=== PATIENT | male | born 1960 | race Caucasian/White ===

== ENCOUNTER 2017-03-29 16:19 | Emergency (ER) | payer OTHER ==
[~2017-03-29] VITALS: Ht 182.9 cm; Wt 97.7 kg
[2017-03-29 16:20] VITALS: BP 150/103
[2017-03-29] MEDS ORDERED: COLCHICINE 0.6 MG TABLET PO ONE (17:30)
== END 2017-03-29 18:02 | disposition home or self-care (01) ==
LOC: ED 17:56
DX: M10.9 Gout, unspecified (principal); M13.872 Other specified arthritis, left ankle and foot
CPT/HCPCS: 99282

== ENCOUNTER 2017-06-15 09:38 | Emergency (ER) | payer SELFPAY ==
[~2017-06-15] VITALS: Ht 182.9 cm; Wt 93.0 kg
[2017-06-15 09:41] VITALS: BP 125/89
== END 2017-06-15 10:54 | disposition home or self-care (01) ==
LOC: ED 10:45
DX: S93.401A Sprain of unspecified ligament of right ankle, initial encounter (principal); X58.XXXA Exposure to other specified factors, initial encounter; Y93.89 Activity, other specified; Y92.89 Other specified places as the place of occurrence of the external cause; Y99.8 Other external cause status
CPT/HCPCS: 99284

== ENCOUNTER 2018-08-27 07:22 | Inpatient (IN) | payer SELFPAY ==
[~2018-08-27] VITALS: Ht 180.3 cm; Wt 96.1 kg
--- NOTE | 2018-08-27 07:35 | NUR ---
PATIENT ARRIVES TO THE ER WITH SHORTNESS OF BREATH AND CHEST PRESSURE THAT BEGAN TWO DAYS AGO. HE IS 95% ON ROOM AIR AND NO VISIBLE DISTRESS, BUT REPORTS FEELING TIGHT CHESTED AND DIFFICULTY TAKING A DEEP BREATH. PATIENT IN GOWN, RAILS UP, ON MONITOR. VSS. STACH 95.
--- NOTE | 2018-08-27 07:42 | NUR ---
patient left for xray.
[2018-08-27] MEDS ORDERED: KETOROLAC 30 MG/1 ML ONE ×2 (08:08→14:21)
[2018-08-27 08:13] LABS: BASOPHILS # (AUTO) 0.08 x10^3/uL (0-0.1); BASOPHILS % (AUTO) 1 % (0-1); EOSINOPHILS # (AUTO) 0.17 x10^3/uL (0-0.4); EOSINOPHILS % (AUTO) 2 % (1-7); LYMPHOCYTES # (AUTO) 1.62 x10^3/uL (1-3.4); LYMPHOCYTES % (AUTO) 15 % (22-44); MD NO; MEAN CORPUSCULAR HEMOGLOBIN 34.8 pg (27.5-34.5); MEAN CORPUSCULAR HGB CONC 33.7 g/dL (33.2-36.2); MEAN CORPUSCULAR VOLUME 103.2 fL (81-97); MEAN PLATELET VOLUME 7.5 fL (7.4-10.4); MONOCYTES # (AUTO) 0.63 x10^3/uL (0.2-0.8); MONOCYTES % (AUTO) 6 % (2-9); NEUTROPHILS # (AUTO) 8.61 x10^3/uL (1.8-6.8); NEUTROPHILS % (AUTO) 77 % (42-75); PLATELET COUNT 200 x10^3/uL (130-400); RED BLOOD COUNT 4.38 x10^6/uL (4.38-5.82); RED CELL DISTRIBUTION WIDTH 13.1 % (9.4-14.8)
[2018-08-27 08:24] LABS: ALANINE AMINOTRANSFERASE 115 U/L (12-78); ALBUMIN 3.3 g/dL (3.4-5.0); ANION GAP 7 mmol/L (5-15); CALCIUM 8.7 mg/dL (8.5-10.1); CHLORIDE 108 mmol/L (98-107); CREATININE 1.24 mg/dL (0.7-1.3)
[2018-08-27 08:29] LABS: ALKALINE PHOSPHATASE 81 U/L (45-117); BILIRUBIN,TOTAL 0.5 mg/dL (0.2-1.0); TOTAL PROTEIN 8.5 g/dL (6.4-8.2); TROPONIN I < 0.015 ng/mL (0.000-0.045)
[2018-08-27] MEDS ORDERED: KETOROLAC 30 MG/1 ML IM ONE (08:30)
--- NOTE | 2018-08-27 09:04 | NUR ---
placed IV for CTA contrast. Patietn awaiting ct scan
--- NOTE | 2018-08-27 09:21 | NUR ---
patient left for ct scan
[2018-08-27] MEDS ORDERED: OMNIPAQUE 350 MG/ML, 100ML BOTTLE ONE (09:37)
[2018-08-27] MEDS ORDERED: HEPARIN 25,000 UNITS/500ML PMX 500 ML ONE (09:50)
[2018-08-27] MEDS ORDERED: HEPARIN 5,000 UNITS/ML, 1ML ONE ×2 (09:58→09:59)
[2018-08-27] MEDS: HEPARIN 25,000 UNITS/500ML PMX 500 ML IV PRN ×2 (09:59→14:00)
[2018-08-27] MEDS ORDERED: HEPARIN 5,000 UNITS/ML, 1ML IV ONE (10:00)
[2018-08-27] MEDS ORDERED: HEPARIN 5,000 UNITS/ML, 1ML IV PRN (10:00)
[2018-08-27] MEDS ORDERED: ONDANSETRON 2MG/ML, 2ML IVPush PRN (12:00)
[2018-08-27] MEDS ORDERED: hydrALAzine 20 MG/ML, 1ML IVPush PRN (12:00)
[2018-08-27] MEDS ORDERED: ACETAMINOPHEN 325 MG TABLET PO PRN (12:00)
--- NOTE | 2018-08-27 12:18 | NUR ---
patient still awaiting admission bed. calm and comfortable in bed. will jason.
--- NOTE | 2018-08-27 12:51 | NUR ---
ordered bed for patient. got him up to bathroom with no problems walking to bathroom
--- NOTE | 2018-08-27 13:32 | NUR ---
patient on hospital bed. patient returned from ct scan. awaiting results.
--- NOTE | 2018-08-27 14:00 | NUR ---
PATIENT HEPARIN GTT IS NO REBOLUS AND NO CHANGE RATE REDRAW 22:00
[2018-08-27] MEDS ORDERED: ENOXAPARIN 80 MG/0.8 ML ONE (14:21)
[2018-08-27] MEDS: ENOXAPARIN 80 MG/0.8 ML SQ SCH (14:22)
[2018-08-27] MEDS: KETOROLAC 30 MG/1 ML IV SCH ×3 (14:22→23:54)
--- NOTE | 2018-08-27 16:52 | NUR ---
REPORT CALLED SBAR. LISA JAMES. PATIENT RTG.
--- NOTE | 2018-08-27 16:57 | NUR ---
CALLING LAB TO CLEAR UP TIME ON THE TIMED XA AND THEY STATED THEY MANJTI IT TOO EARLY 12:27 AND WILL DRAW HIM STAT NOW
[2018-08-27 18:24] VITALS: BP 134/91
[2018-08-27 20:24] VITALS: BP 148/90
[2018-08-28 00:51] VITALS: BP 124/71
[2018-08-28] MEDS: ENOXAPARIN 80 MG/0.8 ML SQ SCH (02:23)
[2018-08-28] MEDS: KETOROLAC 30 MG/1 ML IV SCH ×3 (05:52→18:21)
[2018-08-28 07:35] VITALS: BP 133/89
[2018-08-28 14:16] VITALS: BP 137/86
[2018-08-28] MEDS: ENOXAPARIN 100 MG/ML SQ SCH (14:19)
[2018-08-28 19:19] VITALS: BP 107/69
[2018-08-29] MEDS: ENOXAPARIN 100 MG/ML SQ SCH (01:27)
[2018-08-29] MEDS: KETOROLAC 30 MG/1 ML IV SCH ×3 (01:27→13:14)
[2018-08-29 02:00] VITALS: BP 126/75
[2018-08-29 07:51] VITALS: BP 136/80
[2018-08-29 12:03] VITALS: BP 156/87
[2018-08-29] MEDS ORDERED: APIX5TAB PO (15:14)
[2018-08-29] MEDS ORDERED: IBUP-1222 PO (15:14)
== END 2018-08-29 16:20 | disposition home or self-care (01) | DRG 176 ==
LOC: ED 07:53 → SUATTDRO 10:44 → EDIP 11:56 → 4WST 17:15 → DCLOUNGE 08-29 16:07
PROVIDERS: ADMIT Internal Medicine; ATTEND Internal Medicine
DX: I26.99 Other pulmonary embolism without acute cor pulmonale (principal); I10 Essential (primary) hypertension; R07.89 Other chest pain; Z80.8 Family history of malignant neoplasm of other organs or systems; Z79.01 Long term (current) use of anticoagulants; Z79.899 Other long term (current) drug therapy
CPT/HCPCS: 0399T; 36415; 71046; 71275; 74176; 80053; 80074; 84484; 85025; 85379; 85520; 87521; 93005; 93306; 93970; 96374; 96375; 99285; G0378; J1644; J1650; J1885; Q9967

== ENCOUNTER 2020-06-02 19:08 | Emergency (ER) | payer MEDICAID ==
[~2020-06-02] VITALS: Ht 180.3 cm; Wt 104.4 kg
[~2020-06-02 19:08] MED LIST: APIX5TAB PO; IBUP-1222 PO
--- NOTE | 2020-06-02 19:35 | NUR ---
PT HERE FOR FEVER, WEAKNESS, DECREASE APPETITE, AND SOB WITH EXERTION. DENIES CHEST PAIN AND STATES FEELING OK AT REST. PT TOOK TYLENOL AT 1500 TODAY. PT PLACED ON ALL MONITORS, CALL LIGHT WITHIN REACH, AWAITING ERP EVAL
[2020-06-02] MEDS ORDERED: SODIUM CHLORIDE 0.9% 1,000ML IVBOLUS ONE (21:00)
[2020-06-02] MEDS ORDERED: SODIUM CHLORIDE FLUSH 10ML SYR IVF ONE (21:00)
[2020-06-02] MEDS ORDERED: ACETAMINOPHEN 500 MG TABLET PO ONE (21:00)
[2020-06-02] MEDS ORDERED: ACETAMINOPHEN 500 MG TABLET ONE (21:08)
--- NOTE | 2020-06-02 21:13 | NUR ---
PIV STARTED, LABS DRAWN, MEDICATED PER EMAR, AWAITING CXR RESULTS. NO OTHER NEEDS AT THIS TIME
[2020-06-02 21:21] LABS: BASOPHILS % (AUTO) 1 % (0-1); EOSINOPHILS % (AUTO) 0 % (1-7); LYMPHOCYTES % (AUTO) 19 % (22-44); MEAN CORPUSCULAR HEMOGLOBIN 35.9 pg (27.5-34.5); MEAN CORPUSCULAR HGB CONC 35.2 g/dL (33.2-36.2); MEAN PLATELET VOLUME 7.9 fL (7.4-10.4); MONOCYTES % (AUTO) 6 % (2-9); NEUTROPHILS % (AUTO) 74 % (42-75); PLATELET COUNT 131 x10^3/uL (130-400); RED BLOOD COUNT 4.62 x10^6/uL (4.38-5.82); RED CELL DISTRIBUTION WIDTH 12.7 % (9.4-14.8)
[2020-06-02 21:30] LABS: ALANINE AMINOTRANSFERASE 61 U/L (12-78); ALBUMIN 3.4 g/dL (3.4-5.0); ANION GAP 7 mmol/L (5-15); CALCIUM 8.2 mg/dL (8.5-10.1); CHLORIDE 106 mmol/L (98-107); CREATININE 1.39 mg/dL (0.7-1.3)
[2020-06-02 21:37] LABS: ALKALINE PHOSPHATASE 63 U/L (45-117); BILIRUBIN,TOTAL 0.7 mg/dL (0.2-1.0); TOTAL PROTEIN 8.9 g/dL (6.4-8.2); TROPONIN I < 0.015 ng/mL (0.000-0.045)
[2020-06-02 21:54] LABS: MD SCAN
[2020-06-02] MEDS ORDERED: OMNIPAQUE 350 MG/ML, 100ML BOTTLE ONE (22:00)
--- NOTE | 2020-06-02 22:16 | NUR ---
PT TO CT
[2020-06-02 23:51] VITALS: BP 140/108
== END 2020-06-03 00:32 | disposition home or self-care (01) ==
LOC: ED 19:38
DX: J12.9 Viral pneumonia, unspecified (principal); Z20.822 Contact with and (suspected) exposure to COVID-19; R07.89 Other chest pain; R06.00 Dyspnea, unspecified
CPT/HCPCS: 36415; 71045; 71275; 80053; 83605; 84145; 84484; 85025; 87040; 93005; 96360; 99285; J7030; Q9967; U0003

== ENCOUNTER 2020-06-07 20:07 | Inpatient (IN) | payer MEDICAID ==
[~2020-06-07] VITALS: Ht 180.3 cm; Wt 94.9 kg
[2020-06-07] MEDS ORDERED: AZITHROMYCIN 500 MG in SODIUM CHLORIDE 0.9% 250 ML IV ONE (20:30)
[2020-06-07] MEDS ORDERED: ALBUTEROL/IPRATROPIUM 2.5MG/0.5MG, 3 ML NPPB ONE (20:30)
[2020-06-07] MEDS ORDERED: SODIUM CHLORIDE FLUSH 10ML SYR IVF ONE (20:30)
[2020-06-07] MEDS ORDERED: DEXAMETHASONE 4 MG TABLET PO ONE (20:30)
[2020-06-07] MEDS ORDERED: SODIUM CHLORIDE 0.9% 1,000ML IVBOLUS ONE (20:30)
[2020-06-07] MEDS ORDERED: DEXAMETHASONE 4 MG TABLET ONE (20:32)
[2020-06-07] MEDS ORDERED: ALBUTEROL/IPRATROPIUM 2.5MG/0.5MG, 3 ML ONE (20:33)
[2020-06-07 20:35] LABS: BASOPHILS % (AUTO) 0 % (0-1); EOSINOPHILS % (AUTO) 0 % (1-7); LYMPHOCYTES % (AUTO) 14 % (22-44); MEAN CORPUSCULAR HEMOGLOBIN 35.3 pg (27.5-34.5); MONOCYTES % (AUTO) 6 % (2-9); NEUTROPHILS % (AUTO) 79 % (42-75); PLATELET COUNT 217 x10^3/uL (130-400); RED BLOOD COUNT 4.34 x10^6/uL (4.38-5.82)
[2020-06-07 20:36] LABS: MD NO
[2020-06-07 20:45] LABS: ALANINE AMINOTRANSFERASE 43 U/L (12-78); ALBUMIN 2.6 g/dL (3.4-5.0); ANION GAP 7 mmol/L (5-15); CHLORIDE 109 mmol/L (98-107); CREATININE 1.31 mg/dL (0.7-1.3)
[2020-06-07 20:49] LABS: ALKALINE PHOSPHATASE 50 U/L (45-117); BILIRUBIN,TOTAL 0.6 mg/dL (0.2-1.0); TOTAL PROTEIN 8.1 g/dL (6.4-8.2); TROPONIN I < 0.015 ng/mL (0.000-0.045)
--- NOTE | 2020-06-07 21:01 | NUR ---
Pt BIBA with c/o SOB, cough, fever x 10 days. Pt was seen on friday and tested + for covid. Pt was sent home and has since felt worse. Pt with RA sats of 80%, 90-92% on 2L NC. Pt medicated per order, on monitor. Continues to be low 90 after duoneb. RT called for Highflow set up. Will monitor.
[2020-06-07] MEDS ORDERED: CEFTRIAXONE PMX 1GM/50ML 50 ML IV ONE (21:30)
[2020-06-07] MEDS ORDERED: CEFTRIAXONE PMX 1GM/50ML 50 ML ONE (21:47)
--- NOTE | 2020-06-07 23:18 | NUR ---
Pt calm in bed. VSS, tolerating high flow NC well with improvements in SPO2 and work of breathing. Pt denies any needs at this time. Will contiunue to monitor. Call light in reach.
[2020-06-08] MEDS ORDERED: OXYcodone IR 5MG TABLET PO PRN
[2020-06-08] MEDS ORDERED: POLYETHYLENE GLYCOL 17 GM PACKET PO PRN
[2020-06-08] MEDS ORDERED: DOCUSATE 100 MG CAPSULE PO PRN
[2020-06-08] MEDS ORDERED: ONDANSETRON ODT 4 MG PO PRN
[2020-06-08] MEDS ORDERED: PROMETHAZINE 25 MG/ML, 1ML IM PRN
[2020-06-08] MEDS ORDERED: ONDANSETRON 2MG/ML, 2ML IVPush PRN
[2020-06-08] MEDS ORDERED: BISACODYL 10 MG SUPP PR PRN
[2020-06-08] MEDS ORDERED: ACETAMINOPHEN 325 MG TABLET PO PRN
[2020-06-08] MEDS ORDERED: REMDESIVIR 200 MG in SODIUM CHLORIDE 0.9% 250 ML IVPB ONE (00:30)
[2020-06-08] MEDS ORDERED: PHARMACY INSTRUCTION MC PRN (00:30)
[2020-06-08] MEDS ORDERED: ASCORBIC ACID 500 MG TABLET ONE (00:35)
[2020-06-08] MEDS ORDERED: MELATONIN 5 MG TABLET ONE (00:35)
[2020-06-08] MEDS: MELATONIN 5 MG TABLET PO SCH ×2 (00:38→20:48)
[2020-06-08] MEDS: ASCORBIC ACID 500 MG TABLET PO SCH ×3 (00:38→16:03)
[2020-06-08 03:30] VITALS: BP 129/91
[2020-06-08 06:04] LABS: BASOPHILS % (AUTO) 0 % (0-1); EOSINOPHILS % (AUTO) 0 % (1-7); LYMPHOCYTES % (AUTO) 11 % (22-44); MEAN CORPUSCULAR HEMOGLOBIN 35.3 pg (27.5-34.5); MEAN CORPUSCULAR HGB CONC 34.6 g/dL (33.2-36.2); MEAN PLATELET VOLUME 8.2 fL (7.4-10.4); MONOCYTES % (AUTO) 6 % (2-9); NEUTROPHILS % (AUTO) 82 % (42-75); PLATELET COUNT 217 x10^3/uL (130-400); RED BLOOD COUNT 3.81 x10^6/uL (4.38-5.82); RED CELL DISTRIBUTION WIDTH 12.9 % (9.4-14.8)
[2020-06-08 06:08] LABS: MD NO
[2020-06-08 06:20] LABS: ALANINE AMINOTRANSFERASE 34 U/L (12-78); ALBUMIN 2.3 g/dL (3.4-5.0); ANION GAP 7 mmol/L (5-15); CHLORIDE 111 mmol/L (98-107)
[2020-06-08 06:29] LABS: ALKALINE PHOSPHATASE 43 U/L (45-117); BILIRUBIN,TOTAL 0.5 mg/dL (0.2-1.0); CHOL/HDL RATIO 3.9; CHOLESTEROL, TOTAL 118 mg/dL (140-239); HDL CHOL % 25 % (26-37); HDL CHOLESTEROL (DIRECT) 30 mg/dL (40-60); LDL CHOLESTEROL,CALCULATED 24 mg/dL (54-169); LDL/HDL RATIO 0.8 (0.5-3.0); TOTAL PROTEIN 7.3 g/dL (6.4-8.2); TRIGLYCERIDES 320 mg/dL (50-200); VLDL CHOLESTEROL 64 mg/dL (0-25)
[2020-06-08 08:52] LABS: C-REACTIVE PROTEIN, QUANT 1.6 mg/dL (0.02-0.49)
[2020-06-08 08:56] VITALS: BP 125/85
[2020-06-08] MEDS: ZINC SULFATE 220 MG CAPSULE PO SCH (09:03)
[2020-06-08] MEDS: CHOLECALCIFEROL 1,000 UNIT TABLET PO SCH (09:03)
[2020-06-08] MEDS: APIXABAN 5 MG TABLET PO SCH ×2 (09:03→20:48)
[2020-06-08] MEDS: DEXAMETHASONE 4 MG/ML, 1ML IVPush SCH (09:05)
[2020-06-08] MEDS: SODIUM CHLORIDE 0.9% 1,000 ML IV SCH ×3 (10:00→20:48)
[2020-06-08 12:40] VITALS: BP 126/87
[2020-06-08] MEDS: ACETAMINOPHEN 325 MG TABLET PO PRN (16:07)
[2020-06-08 20:45] VITALS: BP 130/89
[2020-06-08] MEDS ORDERED: AZITHROMYCIN 500 MG in SODIUM CHLORIDE 0.9% 250 ML IV SCH (21:00)
[2020-06-08] MEDS: CEFTRIAXONE PMX 2GM/50ML 50 ML IVPB SCH (22:07)
[2020-06-09] MEDS: REMDESIVIR 100 MG in SODIUM CHLORIDE 0.9% 250 ML IVPB SCH (00:59)
[2020-06-09 01:02] VITALS: BP 132/89
[2020-06-09] MEDS: ACETAMINOPHEN 325 MG TABLET PO PRN ×2 (05:11→21:35)
[2020-06-09 06:03] LABS: BASOPHILS % (AUTO) 0 % (0-1); EOSINOPHILS % (AUTO) 0 % (1-7); LYMPHOCYTES % (AUTO) 10 % (22-44); MEAN CORPUSCULAR HEMOGLOBIN 35.5 pg (27.5-34.5); MEAN CORPUSCULAR HGB CONC 35.1 g/dL (33.2-36.2); MEAN PLATELET VOLUME 8.7 fL (7.4-10.4); MONOCYTES % (AUTO) 7 % (2-9); NEUTROPHILS % (AUTO) 83 % (42-75); PLATELET COUNT 239 x10^3/uL (130-400); RED BLOOD COUNT 3.79 x10^6/uL (4.38-5.82); RED CELL DISTRIBUTION WIDTH 12.7 % (9.4-14.8)
[2020-06-09 06:04] LABS: CHLORIDE 111 mmol/L (98-107)
[2020-06-09 06:13] LABS: ALANINE AMINOTRANSFERASE 38 U/L (12-78); ALBUMIN 2.3 g/dL (3.4-5.0); ALKALINE PHOSPHATASE 50 U/L (45-117); ANION GAP 9 mmol/L (5-15); BILIRUBIN,TOTAL 0.4 mg/dL (0.2-1.0); CALCIUM 8.4 mg/dL (8.5-10.1); CREATININE 1.03 mg/dL (0.7-1.3); TOTAL PROTEIN 7.2 g/dL (6.4-8.2)
[2020-06-09 06:17] LABS: MD NO
[2020-06-09 07:45] VITALS: BP 128/86
[2020-06-09] MEDS: DEXAMETHASONE 4 MG/ML, 1ML IVPush SCH (09:15)
[2020-06-09] MEDS: ZINC SULFATE 220 MG CAPSULE PO SCH (09:16)
[2020-06-09] MEDS: CHOLECALCIFEROL 1,000 UNIT TABLET PO SCH (09:16)
[2020-06-09] MEDS: ASCORBIC ACID 500 MG TABLET PO SCH ×2 (09:17→21:35)
[2020-06-09] MEDS: APIXABAN 5 MG TABLET PO SCH ×2 (09:17→21:27)
[2020-06-09] MEDS: SODIUM CHLORIDE 0.9% 1,000 ML IV SCH ×2 (09:24→21:27)
[2020-06-09 13:33] VITALS: BP 132/87
[2020-06-09 20:38] VITALS: BP 137/89
[2020-06-09] MEDS: ATORVASTATIN 20 MG TABLET PO SCH (21:26)
[2020-06-09] MEDS: CEFTRIAXONE PMX 2GM/50ML 50 ML IVPB SCH (21:27)
[2020-06-09] MEDS: MELATONIN 5 MG TABLET PO SCH (21:27)
[2020-06-10] MEDS: REMDESIVIR 100 MG in SODIUM CHLORIDE 0.9% 250 ML IVPB SCH (01:40)
[2020-06-10 03:08] VITALS: BP 151/94
[2020-06-10] MEDS ORDERED: PROPOFOL 10 MG/ML, 100ML IV ONE (04:38)
[2020-06-10] MEDS ORDERED: ROCURONIUM 10MG/ML,5ML ONE (04:38)
[2020-06-10] MEDS ORDERED: MIDAZOLAM 1 MG/ML, 5ML ONE (04:38)
[2020-06-10] MEDS ORDERED: PROPOFOL 10 MG/ML, 20ML ONE (04:38)
[2020-06-10 05:20] LABS: C-REACTIVE PROTEIN, QUANT 0.41 mg/dL (0.02-0.49)
[2020-06-10 07:30] VITALS: BP 150/99
[2020-06-10 08:20] LABS: BASOPHILS % (AUTO) 0 % (0-1); EOSINOPHILS % (AUTO) 0 % (1-7); LYMPHOCYTES % (AUTO) 7 % (22-44); MEAN CORPUSCULAR HEMOGLOBIN 35.6 pg (27.5-34.5); MEAN CORPUSCULAR HGB CONC 35.1 g/dL (33.2-36.2); MONOCYTES % (AUTO) 5 % (2-9); NEUTROPHILS % (AUTO) 88 % (42-75); PLATELET COUNT 178 x10^3/uL (130-400); RED BLOOD COUNT 4.26 x10^6/uL (4.38-5.82); RED CELL DISTRIBUTION WIDTH 12.7 % (9.4-14.8)
[2020-06-10 08:29] LABS: ANION GAP 8 mmol/L (5-15); CALCIUM 8.5 mg/dL (8.5-10.1)
[2020-06-10 08:33] LABS: CREATININE 0.92 mg/dL (0.7-1.3)
[2020-06-10 08:36] LABS: CHLORIDE 114 mmol/L (98-107)
[2020-06-10 08:40] LABS: MD SCAN
[2020-06-10] MEDS ORDERED: DEXAMETHASONE 1 MG TABLET PO SCH (09:00)
[2020-06-10] MEDS ORDERED: DEXAMETHASONE 4 MG/ML, 1ML IVPush SCH (09:00)
[2020-06-10] MEDS ORDERED: SODIUM BICARBONATE 1 MEQ/ML, 50ML VIAL IVPush ONE (09:00)
[2020-06-10] MEDS ORDERED: TOCILIZUMAB 800 MG in SODIUM CHLORIDE 0.9% 60 ML IV ONE (09:30)
[2020-06-10] MEDS: DEXAMETHASONE 4 MG/ML, 1ML IVPush SCH (10:15)
[2020-06-10] MEDS: CHOLECALCIFEROL 1,000 UNIT TABLET PO SCH (10:15)
[2020-06-10] MEDS: APIXABAN 5 MG TABLET PO SCH ×2 (10:15→21:10)
[2020-06-10] MEDS: ZINC SULFATE 220 MG CAPSULE PO SCH (10:15)
[2020-06-10] MEDS: ASCORBIC ACID 500 MG TABLET PO SCH ×2 (10:15→17:18)
[2020-06-10] MEDS ORDERED: FUROSEMIDE 40 MG/4 ML IV ONE (11:00)
[2020-06-10] MEDS: AZITHROMYCIN 500 MG in SODIUM CHLORIDE 0.9% 250 ML IV SCH (11:25)
[2020-06-10] MEDS ORDERED: LORazepam 2 MG/ML, 1ML IVPush PRN (11:30)
[2020-06-10] MEDS: PROPOFOL 100 ML IV PRN ×4 (12:10→23:02)
[2020-06-10] MEDS ORDERED: LACTULOSE 20 GM/30 ML UDC NG PRN (12:30)
[2020-06-10] MEDS ORDERED: PHARMACY MAY ADJ FOR RENAL FX MC SCH (12:30)
[2020-06-10] MEDS ORDERED: ONDANSETRON 2MG/ML, 2ML IV PRN (12:30)
[2020-06-10] MEDS ORDERED: SENNA/DOCUSATE TABLET NG PRN (12:30)
[2020-06-10] MEDS ORDERED: BISACODYL 10 MG SUPP PR PRN (12:30)
[2020-06-10] MEDS ORDERED: GLUCAGON 1 MG IM PRN (12:30)
[2020-06-10] MEDS ORDERED: SENNA 176 MG/5 ML ORAL SOL NG PRN (12:30)
[2020-06-10] MEDS ORDERED: LIDOCAINE-MPF 1%, 2ML ENDO PRN (12:30)
[2020-06-10] MEDS ORDERED: DEXTROSE 50%, 50ML SYRINGE IVPush PRN (12:30)
[2020-06-10] MEDS ORDERED: DEXTROSE 4 GM TAB.CHEW PO PRN (12:30)
[2020-06-10] MEDS: FENTANYL PF 100 MCG/2ML IVPush PRN ×4 (12:52→23:45)
[2020-06-10] MEDS: MIDAZOLAM HCL 50 MG in SODIUM CHLORIDE 0.9% 40 ML IV PRN ×2 (15:06→21:10)
[2020-06-10] MEDS: FUROSEMIDE 40 MG/4 ML IV SCH (17:19)
[2020-06-10] MEDS: ATORVASTATIN 20 MG TABLET PO SCH (21:10)
[2020-06-10] MEDS: SODIUM CHLORIDE FLUSH 10ML SYR IVF SCH (21:10)
[2020-06-10] MEDS: CEFTRIAXONE PMX 2GM/50ML 50 ML IVPB SCH (21:28)
[2020-06-11] MEDS: REMDESIVIR 100 MG in SODIUM CHLORIDE 0.9% 250 ML IVPB SCH (02:44)
[2020-06-11] MEDS: FENTANYL PF 100 MCG/2ML IVPush PRN ×3 (02:45→09:00)
[2020-06-11 04:50] LABS: BASOPHILS % (AUTO) 0 % (0-1); EOSINOPHILS % (AUTO) 0 % (1-7); LYMPHOCYTES % (AUTO) 8 % (22-44); MEAN CORPUSCULAR HEMOGLOBIN 35.3 pg (27.5-34.5); MEAN CORPUSCULAR HGB CONC 34.8 g/dL (33.2-36.2); MEAN PLATELET VOLUME 8.5 fL (7.4-10.4); MONOCYTES % (AUTO) 4 % (2-9); NEUTROPHILS % (AUTO) 88 % (42-75); PLATELET COUNT 153 x10^3/uL (130-400); RED BLOOD COUNT 4.01 x10^6/uL (4.38-5.82); RED CELL DISTRIBUTION WIDTH 12.8 % (9.4-14.8)
[2020-06-11 04:56] LABS: MD NO
[2020-06-11 04:58] LABS: ANION GAP 9 mmol/L (5-15); CALCIUM 7.8 mg/dL (8.5-10.1); CHLORIDE 113 mmol/L (98-107)
[2020-06-11 05:00] LABS: CREATININE 1.13 mg/dL (0.7-1.3)
[2020-06-11] MEDS: INSULIN LISPRO 100 UNITS/ML, PEN SQ-INSULIN SCH ×4 (07:00→21:18)
[2020-06-11] MEDS: FUROSEMIDE 40 MG/4 ML IV SCH ×2 (07:21→17:07)
[2020-06-11] MEDS: ASCORBIC ACID 500 MG TABLET PO SCH ×2 (08:58→17:07)
[2020-06-11] MEDS: DEXAMETHASONE 4 MG/ML, 1ML IVPush SCH (08:59)
[2020-06-11] MEDS: APIXABAN 5 MG TABLET PO SCH ×2 (08:59→21:17)
[2020-06-11] MEDS: ZINC SULFATE 220 MG CAPSULE PO SCH (08:59)
[2020-06-11] MEDS: PANTOPRAZOLE 40 MG IV IV SCH (08:59)
[2020-06-11] MEDS: CHOLECALCIFEROL 1,000 UNIT TABLET PO SCH (08:59)
[2020-06-11] MEDS: SODIUM CHLORIDE FLUSH 10ML SYR IVF SCH ×2 (09:05→21:00)
[2020-06-11] MEDS: METHYLNALTREXONE 12 MG/0.6 ML SYR SQ SCH (09:05)
[2020-06-11] MEDS: MIDAZOLAM HCL 50 MG in SODIUM CHLORIDE 0.9% 40 ML IV PRN ×2 (09:46→22:24)
[2020-06-11] MEDS: FENTANYL PF 1,000 MCG in SODIUM CHLORIDE 0.9% 80 ML IV PRN ×2 (09:47→19:44)
[2020-06-11] MEDS: PROPOFOL 100 ML IV PRN ×4 (11:18→23:53)
[2020-06-11] MEDS: AZITHROMYCIN 500 MG in SODIUM CHLORIDE 0.9% 250 ML IV SCH (11:39)
[2020-06-11] MEDS: CEFTRIAXONE PMX 2GM/50ML 50 ML IVPB SCH (21:17)
[2020-06-11] MEDS: ATORVASTATIN 20 MG TABLET PO SCH (21:17)
[2020-06-12] MEDS: REMDESIVIR 100 MG in SODIUM CHLORIDE 0.9% 250 ML IVPB SCH (02:37)
[2020-06-12 04:33] LABS: BASOPHILS % (AUTO) 0 % (0-1); EOSINOPHILS % (AUTO) 1 % (1-7); LYMPHOCYTES % (AUTO) 9 % (22-44); MEAN CORPUSCULAR HEMOGLOBIN 35.5 pg (27.5-34.5); MEAN CORPUSCULAR HGB CONC 35.2 g/dL (33.2-36.2); MEAN PLATELET VOLUME 8.5 fL (7.4-10.4); MONOCYTES % (AUTO) 3 % (2-9); NEUTROPHILS % (AUTO) 86 % (42-75); PLATELET COUNT 170 x10^3/uL (130-400); RED BLOOD COUNT 3.86 x10^6/uL (4.38-5.82); RED CELL DISTRIBUTION WIDTH 13.2 % (9.4-14.8)
[2020-06-12 04:36] LABS: MD NO
[2020-06-12] MEDS: INSULIN LISPRO 100 UNITS/ML, PEN SQ-INSULIN SCH ×4 (05:59→20:29)
[2020-06-12] MEDS: PROPOFOL 100 ML IV PRN (07:09)
[2020-06-12 07:45] LABS: ANION GAP 9 mmol/L (5-15); CALCIUM 7.9 mg/dL (8.5-10.1); CHLORIDE 115 mmol/L (98-107); CREATININE 1.51 mg/dL (0.7-1.3)
[2020-06-12] MEDS: FUROSEMIDE 40 MG/4 ML IV SCH (07:45)
[2020-06-12] MEDS: APIXABAN 5 MG TABLET PO SCH ×2 (08:47→20:28)
[2020-06-12] MEDS: ASCORBIC ACID 500 MG TABLET PO SCH ×2 (08:47→17:18)
[2020-06-12] MEDS: CHOLECALCIFEROL 5,000u TAB PO SCH (08:48)
[2020-06-12] MEDS: SODIUM CHLORIDE FLUSH 10ML SYR IVF SCH ×2 (08:48→20:28)
[2020-06-12] MEDS: ZINC SULFATE 220 MG CAPSULE PO SCH (08:48)
[2020-06-12] MEDS: PANTOPRAZOLE 40 MG IV IV SCH (08:49)
[2020-06-12] MEDS: DEXAMETHASONE 4 MG/ML, 1ML IVPush SCH (08:49)
[2020-06-12] MEDS: MIDAZOLAM HCL 50 MG in SODIUM CHLORIDE 0.9% 40 ML IV PRN ×2 (08:55→17:17)
[2020-06-12] MEDS: AZITHROMYCIN 500 MG in SODIUM CHLORIDE 0.9% 250 ML IV SCH (10:34)
--- NOTE | 2020-06-12 11:36 | NUR ---
Tube Feeds: Promote: Goal :70 ml/hr Addendum: 06/12/20 at [address] Amended: Links added.
[2020-06-12] MEDS: FENTANYL PF 1,000 MCG in SODIUM CHLORIDE 0.9% 80 ML IV PRN ×2 (12:33→21:17)
[2020-06-12] MEDS: ATORVASTATIN 20 MG TABLET PO SCH (20:28)
[2020-06-12] MEDS: CEFTRIAXONE PMX 2GM/50ML 50 ML IVPB SCH (20:48)
[2020-06-13] MEDS: MIDAZOLAM HCL 50 MG in SODIUM CHLORIDE 0.9% 40 ML IV PRN ×4 (00:57→22:23)
[2020-06-13 04:28] LABS: BASOPHILS % (AUTO) 0 % (0-1); EOSINOPHILS % (AUTO) 2 % (1-7); LYMPHOCYTES % (AUTO) 7 % (22-44); MEAN CORPUSCULAR HGB CONC 34.7 g/dL (33.2-36.2); MEAN PLATELET VOLUME 8.2 fL (7.4-10.4); MONOCYTES % (AUTO) 3 % (2-9); NEUTROPHILS % (AUTO) 88 % (42-75); PLATELET COUNT 221 x10^3/uL (130-400); RED BLOOD COUNT 4.02 x10^6/uL (4.38-5.82); RED CELL DISTRIBUTION WIDTH 12.8 % (9.4-14.8)
[2020-06-13 05:41] LABS: MD SCAN
[2020-06-13] MEDS: FENTANYL PF 1,000 MCG in SODIUM CHLORIDE 0.9% 80 ML IV PRN ×2 (06:16→14:40)
[2020-06-13] MEDS: INSULIN LISPRO 100 UNITS/ML, PEN SQ-INSULIN SCH ×4 (06:16→20:23)
[2020-06-13 07:14] LABS: ANION GAP 7 mmol/L (5-15); CALCIUM 8.5 mg/dL (8.5-10.1); CHLORIDE 117 mmol/L (98-107); CREATININE 1.27 mg/dL (0.7-1.3)
[2020-06-13] MEDS: QUETIAPINE 25MG TABLET PO SCH ×2 (08:27→20:20)
[2020-06-13] MEDS: ZINC SULFATE 220 MG CAPSULE PO SCH (08:28)
[2020-06-13] MEDS: APIXABAN 5 MG TABLET PO SCH ×2 (08:29→20:21)
[2020-06-13] MEDS: ASCORBIC ACID 500 MG TABLET PO SCH ×2 (08:30→17:06)
[2020-06-13] MEDS: CHOLECALCIFEROL 5,000u TAB PO SCH (08:30)
[2020-06-13] MEDS: DEXAMETHASONE 4 MG/ML, 1ML IVPush SCH (08:31)
[2020-06-13] MEDS: METHYLNALTREXONE 12 MG/0.6 ML SYR SQ SCH (08:31)
[2020-06-13] MEDS: PANTOPRAZOLE 40 MG IV IV SCH (08:31)
[2020-06-13] MEDS: SODIUM CHLORIDE FLUSH 10ML SYR IVF SCH ×2 (08:31→20:20)
[2020-06-13] MEDS ORDERED: FUROSEMIDE 40 MG/4 ML IV ONE (09:30)
[2020-06-13] MEDS: AZITHROMYCIN 500 MG in SODIUM CHLORIDE 0.9% 250 ML IV SCH (11:18)
[2020-06-13] MEDS: CEFTRIAXONE PMX 2GM/50ML 50 ML IVPB SCH (20:20)
[2020-06-13] MEDS: ATORVASTATIN 20 MG TABLET PO SCH (20:21)
[2020-06-13] MEDS ORDERED: INSULIN GLARGINE 100 UNITS/ML, PEN SQ-INSULIN SCH (21:00)
[2020-06-13] MEDS: FENTANYL PF 2,500 MCG in SODIUM CHLORIDE 0.9% 200 ML IV PRN (23:15)
[2020-06-14] MEDS: INSULIN LISPRO 100 UNITS/ML, PEN SQ-INSULIN SCH ×4 (02:43→21:14)
[2020-06-14 04:30] LABS: BASOPHILS % (AUTO) 0 % (0-1); EOSINOPHILS % (AUTO) 2 % (1-7); LYMPHOCYTES % (AUTO) 8 % (22-44); MEAN CORPUSCULAR HEMOGLOBIN 35.6 pg (27.5-34.5); MEAN CORPUSCULAR HGB CONC 34.9 g/dL (33.2-36.2); MEAN PLATELET VOLUME 8.4 fL (7.4-10.4); MONOCYTES % (AUTO) 4 % (2-9); NEUTROPHILS % (AUTO) 87 % (42-75); PLATELET COUNT 219 x10^3/uL (130-400); RED BLOOD COUNT 3.93 x10^6/uL (4.38-5.82); RED CELL DISTRIBUTION WIDTH 12.7 % (9.4-14.8)
[2020-06-14 04:32] LABS: MD NO
[2020-06-14] MEDS: QUETIAPINE 25MG TABLET PO SCH ×2 (08:45→21:14)
[2020-06-14] MEDS: CHOLECALCIFEROL 5,000u TAB PO SCH (08:45)
[2020-06-14] MEDS: APIXABAN 5 MG TABLET PO SCH ×2 (08:45→21:14)
[2020-06-14] MEDS: ASCORBIC ACID 500 MG TABLET PO SCH ×2 (08:45→16:07)
[2020-06-14] MEDS: ZINC SULFATE 220 MG CAPSULE PO SCH (08:46)
[2020-06-14] MEDS: PANTOPRAZOLE 40 MG IV IV SCH (08:46)
[2020-06-14] MEDS: DEXAMETHASONE 4 MG/ML, 1ML IVPush SCH (08:47)
[2020-06-14] MEDS: SODIUM CHLORIDE FLUSH 10ML SYR IVF SCH ×2 (08:48→21:15)
[2020-06-14] MEDS: INSULIN GLARGINE 100 UNITS/ML, PEN SQ-INSULIN SCH ×2 (08:51→21:13)
[2020-06-14] MEDS: AZITHROMYCIN 500 MG in SODIUM CHLORIDE 0.9% 250 ML IV SCH (10:43)
[2020-06-14] MEDS: THIAMINE 100 MG in SODIUM CHLORIDE 0.9% 50 ML IV SCH (11:43)
[2020-06-14] MEDS: MIDAZOLAM HCL 50 MG in SODIUM CHLORIDE 0.9% 40 ML IV PRN (16:06)
[2020-06-14] MEDS: ATORVASTATIN 20 MG TABLET PO SCH (21:14)
[2020-06-14] MEDS: CEFTRIAXONE PMX 2GM/50ML 50 ML IVPB SCH (21:15)
[2020-06-15] MEDS: MIDAZOLAM HCL 50 MG in SODIUM CHLORIDE 0.9% 40 ML IV PRN ×2 (02:04→16:43)
[2020-06-15] MEDS: INSULIN LISPRO 100 UNITS/ML, PEN SQ-INSULIN SCH ×4 (03:25→21:37)
[2020-06-15 04:36] LABS: BASOPHILS % (AUTO) 0 % (0-1); EOSINOPHILS % (AUTO) 2 % (1-7); LYMPHOCYTES % (AUTO) 7 % (22-44); MEAN CORPUSCULAR HEMOGLOBIN 34.9 pg (27.5-34.5); MEAN CORPUSCULAR HGB CONC 33.9 g/dL (33.2-36.2); MEAN PLATELET VOLUME 7.9 fL (7.4-10.4); MONOCYTES % (AUTO) 5 % (2-9); NEUTROPHILS % (AUTO) 86 % (42-75); PLATELET COUNT 221 x10^3/uL (130-400); RED CELL DISTRIBUTION WIDTH 12.8 % (9.4-14.8)
[2020-06-15 04:37] LABS: MD NO
[2020-06-15 04:48] LABS: ALBUMIN 2.6 g/dL (3.4-5.0); ANION GAP 4 mmol/L (5-15); CALCIUM 8.3 mg/dL (8.5-10.1); CHLORIDE 112 mmol/L (98-107)
[2020-06-15 04:52] LABS: ALANINE AMINOTRANSFERASE 38 U/L (12-78); ALKALINE PHOSPHATASE 63 U/L (45-117); BILIRUBIN,TOTAL 0.3 mg/dL (0.2-1.0); CREATININE 1.09 mg/dL (0.7-1.3); TOTAL PROTEIN 6.8 g/dL (6.4-8.2)
[2020-06-15] MEDS: DEXMEDETOMIDINE 200 MCG in SODIUM CHLORIDE 0.9% 48 ML IV PRN ×3 (08:53→15:27)
[2020-06-15] MEDS: LACTULOSE 20 GM/30 ML UDC NG SCH ×3 (08:58→21:12)
[2020-06-15] MEDS: APIXABAN 5 MG TABLET PO SCH ×2 (08:58→21:12)
[2020-06-15] MEDS: CHOLECALCIFEROL 5,000u TAB PO SCH (08:59)
[2020-06-15] MEDS: PANTOPRAZOLE 40 MG IV IV SCH (08:59)
[2020-06-15] MEDS: ZINC SULFATE 220 MG CAPSULE PO SCH (08:59)
[2020-06-15] MEDS: DEXAMETHASONE 4 MG/ML, 1ML IVPush SCH (08:59)
[2020-06-15] MEDS: QUETIAPINE 25MG TABLET PO SCH ×2 (08:59→21:12)
[2020-06-15] MEDS: ASCORBIC ACID 500 MG TABLET PO SCH ×2 (08:59→17:50)
[2020-06-15] MEDS: SODIUM CHLORIDE FLUSH 10ML SYR IVF SCH ×2 (09:00→21:13)
[2020-06-15] MEDS: INSULIN GLARGINE 100 UNITS/ML, PEN SQ-INSULIN SCH ×2 (09:04→21:37)
[2020-06-15] MEDS: METHYLNALTREXONE 12 MG/0.6 ML SYR SQ SCH (09:04)
[2020-06-15] MEDS: THIAMINE 100 MG in SODIUM CHLORIDE 0.9% 50 ML IV SCH (11:09)
[2020-06-15] MEDS: hydrALAzine 20 MG/ML, 1ML IVPush PRN ×2 (14:09→21:28)
[2020-06-15] MEDS ORDERED: DEXMEDETOMIDINE 400 MCG in SODIUM CHLORIDE 0.9% 96 ML IV PRN ×2 (17:30→18:00)
[2020-06-15] MEDS: FENTANYL PF 2,500 MCG in SODIUM CHLORIDE 0.9% 200 ML IV PRN (18:01)
[2020-06-15] MEDS: DEXMEDETOMIDINE 1,000 MCG in SODIUM CHLORIDE 0.9% 240 ML IV PRN (21:11)
[2020-06-15] MEDS: ATORVASTATIN 20 MG TABLET PO SCH (21:12)
[2020-06-16] MEDS: INSULIN LISPRO 100 UNITS/ML, PEN SQ-INSULIN SCH ×4 (04:01→21:15)
[2020-06-16] MEDS: LACTULOSE 20 GM/30 ML UDC NG SCH ×4 (04:01→20:30)
[2020-06-16] MEDS: MIDAZOLAM HCL 50 MG in SODIUM CHLORIDE 0.9% 40 ML IV PRN (04:32)
[2020-06-16 04:34] LABS: ANION GAP 6 mmol/L (5-15); BASOPHILS % (AUTO) 0 % (0-1); CALCIUM 8.4 mg/dL (8.5-10.1); CHLORIDE 108 mmol/L (98-107); EOSINOPHILS % (AUTO) 1 % (1-7); LYMPHOCYTES % (AUTO) 6 % (22-44); MEAN CORPUSCULAR HEMOGLOBIN 35.8 pg (27.5-34.5); MEAN CORPUSCULAR HGB CONC 34.9 g/dL (33.2-36.2); MONOCYTES % (AUTO) 5 % (2-9); NEUTROPHILS % (AUTO) 88 % (42-75); PLATELET COUNT 198 x10^3/uL (130-400); RED BLOOD COUNT 4.17 x10^6/uL (4.38-5.82); RED CELL DISTRIBUTION WIDTH 12.9 % (9.4-14.8)
[2020-06-16 04:36] LABS: CREATININE 1.11 mg/dL (0.7-1.3)
[2020-06-16 05:43] LABS: MD SCAN
[2020-06-16] MEDS: DEXMEDETOMIDINE 1,000 MCG in SODIUM CHLORIDE 0.9% 240 ML IV PRN ×3 (06:49→23:14)
[2020-06-16] MEDS: PROPOFOL 100 ML IV PRN ×3 (09:08→23:14)
[2020-06-16] MEDS: APIXABAN 5 MG TABLET PO SCH ×2 (09:18→21:12)
[2020-06-16] MEDS: QUETIAPINE 25MG TABLET PO SCH ×2 (09:18→21:12)
[2020-06-16] MEDS: ASCORBIC ACID 500 MG TABLET PO SCH ×2 (09:18→17:00)
[2020-06-16] MEDS: PANTOPRAZOLE 40 MG IV IV SCH (09:18)
[2020-06-16] MEDS: ZINC SULFATE 220 MG CAPSULE PO SCH (09:18)
[2020-06-16] MEDS: CHOLECALCIFEROL 5,000u TAB PO SCH (09:18)
[2020-06-16] MEDS: DEXAMETHASONE 4 MG/ML, 1ML IVPush SCH (09:18)
[2020-06-16] MEDS: SODIUM CHLORIDE FLUSH 10ML SYR IVF SCH ×2 (09:19→21:12)
[2020-06-16] MEDS: INSULIN GLARGINE 100 UNITS/ML, PEN SQ-INSULIN SCH ×2 (09:27→21:15)
[2020-06-16] MEDS: CEFTRIAXONE PMX 2GM/50ML 50 ML IVPB SCH (11:37)
--- NOTE | 2020-06-16 11:43 | NUR ---
TF per RD recs (06/16): Vital HP w/ goal rate @75mL/hr (w/ propofol); @85mL/hr (OFF propofol) Addendum: 06/16/20 at [address] Amended: Links added.
[2020-06-16] MEDS: METRONIDAZOLE PMX 500MG/100ML 100 ML IV SCH ×2 (12:25→21:12)
[2020-06-16] MEDS: THIAMINE 100 MG in SODIUM CHLORIDE 0.9% 50 ML IV SCH (13:32)
[2020-06-16 13:47] LABS: CLOSTRIDIUM DIFFICILE ANTIGEN NEGATIVE; CLOSTRIDIUM DIFFICILE TOXIN NEGATIVE (Negative)
[2020-06-16] MEDS: FENTANYL PF 2,500 MCG in SODIUM CHLORIDE 0.9% 200 ML IV PRN (14:38)
[2020-06-16] MEDS: ATORVASTATIN 20 MG TABLET PO SCH (21:12)
[2020-06-16] MEDS: ACETAMINOPHEN 325 MG TABLET PO PRN (21:35)
[2020-06-17] MEDS: INSULIN LISPRO 100 UNITS/ML, PEN SQ-INSULIN SCH ×4 (02:54→20:05)
[2020-06-17] MEDS: METRONIDAZOLE PMX 500MG/100ML 100 ML IV SCH ×3 (04:56→20:04)
[2020-06-17 04:57] LABS: BASOPHILS % (AUTO) 1 % (0-1); EOSINOPHILS % (AUTO) 1 % (1-7); LYMPHOCYTES % (AUTO) 9 % (22-44); MEAN CORPUSCULAR HEMOGLOBIN 35.8 pg (27.5-34.5); MEAN CORPUSCULAR HGB CONC 34.6 g/dL (33.2-36.2); MEAN PLATELET VOLUME 7.9 fL (7.4-10.4); MONOCYTES % (AUTO) 7 % (2-9); NEUTROPHILS % (AUTO) 82 % (42-75); PLATELET COUNT 186 x10^3/uL (130-400); RED BLOOD COUNT 4.44 x10^6/uL (4.38-5.82); RED CELL DISTRIBUTION WIDTH 12.9 % (9.4-14.8)
[2020-06-17] MEDS: PROPOFOL 100 ML IV PRN ×3 (04:59→20:07)
[2020-06-17 05:01] LABS: ANION GAP 7 mmol/L (5-15); CALCIUM 8.4 mg/dL (8.5-10.1); CHLORIDE 109 mmol/L (98-107); CREATININE 1.09 mg/dL (0.7-1.3)
[2020-06-17 05:05] LABS: MD NO
[2020-06-17] MEDS: DEXMEDETOMIDINE 1,000 MCG in SODIUM CHLORIDE 0.9% 240 ML IV PRN ×3 (06:24→23:45)
[2020-06-17] MEDS ORDERED: METHYLNALTREXONE 12 MG/0.6 ML SYR SQ PRN (08:30)
[2020-06-17] MEDS ORDERED: Enoxaparin 1 mg/kg protocol SQ SCH (09:00)
[2020-06-17] MEDS ORDERED: HEPARIN 5,000 UNITS/ML, 1ML IV PRN (09:00)
[2020-06-17] MEDS ORDERED: HEPARIN 5,000 UNITS/ML, 1ML IV ONE (09:00)
[2020-06-17] MEDS: DEXAMETHASONE 4 MG/ML, 1ML IVPush SCH (09:25)
[2020-06-17] MEDS: SODIUM CHLORIDE FLUSH 10ML SYR IVF SCH ×2 (09:25→20:04)
[2020-06-17] MEDS: PANTOPRAZOLE 40 MG IV IV SCH (09:25)
[2020-06-17] MEDS: HEPARIN 25,000 UNITS/250ML PMX 250 ML IV PRN (10:04)
[2020-06-17] MEDS: CEFTRIAXONE PMX 2GM/50ML 50 ML IVPB SCH (11:15)
[2020-06-17] MEDS: INSULIN GLARGINE 100 UNITS/ML, PEN SQ-INSULIN SCH ×2 (11:23→20:05)
[2020-06-17 11:57] LABS: MICROSCOPIC INDICATED
[2020-06-17] MEDS ORDERED: OMNIPAQUE 350 MG/ML, 100ML BOTTLE ONE (12:30)
[2020-06-17] MEDS: THIAMINE 100 MG in SODIUM CHLORIDE 0.9% 50 ML IV SCH (13:40)
[2020-06-17] MEDS: MIDAZOLAM HCL 50 MG in SODIUM CHLORIDE 0.9% 40 ML IV PRN (20:10)
[2020-06-18] MEDS: INSULIN LISPRO 100 UNITS/ML, PEN SQ-INSULIN SCH ×4 (03:00→20:56)
[2020-06-18 04:11] LABS: BASOPHILS % (AUTO) 1 % (0-1); EOSINOPHILS % (AUTO) 2 % (1-7); LYMPHOCYTES % (AUTO) 11 % (22-44); MD NO; MEAN CORPUSCULAR HEMOGLOBIN 35.6 pg (27.5-34.5); MEAN CORPUSCULAR HGB CONC 35.4 g/dL (33.2-36.2); MEAN PLATELET VOLUME 7.5 fL (7.4-10.4); MONOCYTES % (AUTO) 7 % (2-9); NEUTROPHILS % (AUTO) 80 % (42-75); PLATELET COUNT 152 x10^3/uL (130-400); RED BLOOD COUNT 4.26 x10^6/uL (4.38-5.82); RED CELL DISTRIBUTION WIDTH 12.9 % (9.4-14.8)
[2020-06-18 04:22] LABS: ANION GAP 6 mmol/L (5-15); CALCIUM 7.9 mg/dL (8.5-10.1); CHLORIDE 109 mmol/L (98-107)
[2020-06-18 04:29] LABS: CREATININE 1.02 mg/dL (0.7-1.3)
[2020-06-18] MEDS: METRONIDAZOLE PMX 500MG/100ML 100 ML IV SCH ×3 (04:36→20:55)
[2020-06-18] MEDS: DEXMEDETOMIDINE 1,000 MCG in SODIUM CHLORIDE 0.9% 240 ML IV PRN ×2 (05:57→14:42)
[2020-06-18] MEDS ORDERED: FUROSEMIDE 40 MG/4 ML IV ONE (09:00)
[2020-06-18] MEDS: PANTOPRAZOLE 40 MG IV IV SCH (09:12)
[2020-06-18] MEDS: SENNA/DOCUSATE TABLET NG SCH (09:12)
[2020-06-18] MEDS: DEXAMETHASONE 4 MG/ML, 1ML IVPush SCH (09:12)
[2020-06-18] MEDS: SODIUM CHLORIDE FLUSH 10ML SYR IVF SCH ×2 (09:13→20:55)
[2020-06-18] MEDS: MIDAZOLAM HCL 50 MG in SODIUM CHLORIDE 0.9% 40 ML IV PRN (09:13)
[2020-06-18] MEDS: INSULIN GLARGINE 100 UNITS/ML, PEN SQ-INSULIN SCH ×2 (09:25→20:57)
[2020-06-18] MEDS: CEFTRIAXONE PMX 2GM/50ML 50 ML IVPB SCH (10:13)
[2020-06-18] MEDS: THIAMINE 100 MG in SODIUM CHLORIDE 0.9% 50 ML IV SCH (11:18)
[2020-06-18] MEDS: HEPARIN 25,000 UNITS/250ML PMX 250 ML IV PRN (14:27)
[2020-06-18] MEDS: FENTANYL PF 100 MCG/2ML IVPush PRN (15:37)
[2020-06-18] MEDS: PROPOFOL 100 ML IV PRN (15:58)
[2020-06-19] MEDS: ACETAMINOPHEN 325 MG TABLET PO PRN (00:10)
[2020-06-19 04:37] LABS: BASOPHILS % (AUTO) 1 % (0-1); EOSINOPHILS % (AUTO) 1 % (1-7); LYMPHOCYTES % (AUTO) 14 % (22-44); MEAN CORPUSCULAR HEMOGLOBIN 35.6 pg (27.5-34.5); MEAN CORPUSCULAR HGB CONC 34.7 g/dL (33.2-36.2); MONOCYTES % (AUTO) 8 % (2-9); NEUTROPHILS % (AUTO) 77 % (42-75); PLATELET COUNT 145 x10^3/uL (130-400); RED BLOOD COUNT 4.36 x10^6/uL (4.38-5.82); RED CELL DISTRIBUTION WIDTH 13.5 % (9.4-14.8)
[2020-06-19 04:38] LABS: MD NO
[2020-06-19] MEDS: METRONIDAZOLE PMX 500MG/100ML 100 ML IV SCH ×3 (04:41→20:07)
[2020-06-19] MEDS: PROPOFOL 100 ML IV PRN ×2 (04:41→15:48)
[2020-06-19 04:49] LABS: ANION GAP 7 mmol/L (5-15); CALCIUM 8.4 mg/dL (8.5-10.1); CHLORIDE 109 mmol/L (98-107); CREATININE 1.02 mg/dL (0.7-1.3); TRIGLYCERIDES 168 mg/dL (50-200)
[2020-06-19] MEDS: INSULIN LISPRO 100 UNITS/ML, PEN SQ-INSULIN SCH ×4 (05:13→21:00)
[2020-06-19] MEDS ORDERED: FUROSEMIDE 40 MG/4 ML IV ONE (08:30)
[2020-06-19] MEDS: PANTOPRAZOLE 40 MG IV IV SCH (09:06)
[2020-06-19] MEDS: SODIUM CHLORIDE FLUSH 10ML SYR IVF SCH ×2 (09:07→21:34)
[2020-06-19] MEDS: SENNA/DOCUSATE TABLET NG SCH (09:07)
[2020-06-19] MEDS: DEXAMETHASONE 4 MG/ML, 1ML IVPush SCH (09:07)
[2020-06-19] MEDS: INSULIN GLARGINE 100 UNITS/ML, PEN SQ-INSULIN SCH ×2 (09:08→21:37)
[2020-06-19] MEDS: DEXMEDETOMIDINE 1,000 MCG in SODIUM CHLORIDE 0.9% 240 ML IV PRN ×2 (11:08)
[2020-06-19] MEDS: CEFTRIAXONE PMX 2GM/50ML 50 ML IVPB SCH (11:08)
[2020-06-19] MEDS: RISPERIDONE 0.5 MG TABLET PO SCH ×2 (13:52→21:00)
[2020-06-19] MEDS: THIAMINE 100 MG in SODIUM CHLORIDE 0.9% 50 ML IV SCH (13:52)
[2020-06-19] MEDS: MIDAZOLAM HCL 50 MG in SODIUM CHLORIDE 0.9% 40 ML IV PRN ×3 (13:53→20:03)
[2020-06-19] MEDS: HEPARIN 25,000 UNITS/250ML PMX 250 ML IV PRN (15:37)
[2020-06-20] MEDS: DEXMEDETOMIDINE 1,000 MCG in SODIUM CHLORIDE 0.9% 240 ML IV PRN ×2 (00:02→11:17)
[2020-06-20 04:21] LABS: BASOPHILS % (AUTO) 1 % (0-1); EOSINOPHILS % (AUTO) 2 % (1-7); LYMPHOCYTES % (AUTO) 19 % (22-44); MEAN CORPUSCULAR HEMOGLOBIN 35.4 pg (27.5-34.5); MEAN CORPUSCULAR HGB CONC 34.2 g/dL (33.2-36.2); MEAN PLATELET VOLUME 8.7 fL (7.4-10.4); MONOCYTES % (AUTO) 9 % (2-9); NEUTROPHILS % (AUTO) 68 % (42-75); PLATELET COUNT 127 x10^3/uL (130-400); RED BLOOD COUNT 4.36 x10^6/uL (4.38-5.82); RED CELL DISTRIBUTION WIDTH 13.3 % (9.4-14.8)
[2020-06-20 04:29] LABS: ANION GAP 5 mmol/L (5-15); CALCIUM 8.4 mg/dL (8.5-10.1); CHLORIDE 111 mmol/L (98-107); CREATININE 1.12 mg/dL (0.7-1.3)
[2020-06-20 04:53] LABS: MD SCAN
[2020-06-20] MEDS: METRONIDAZOLE PMX 500MG/100ML 100 ML IV SCH ×3 (05:08→21:13)
[2020-06-20] MEDS: INSULIN LISPRO 100 UNITS/ML, PEN SQ-INSULIN SCH ×4 (05:08→21:00)
[2020-06-20] MEDS: SENNA/DOCUSATE TABLET NG SCH (07:58)
[2020-06-20] MEDS: PANTOPRAZOLE 40 MG IV IV SCH (07:58)
[2020-06-20] MEDS: RISPERIDONE 0.5 MG TABLET PO SCH ×2 (07:58→21:14)
[2020-06-20] MEDS: DEXAMETHASONE 4 MG/ML, 1ML IVPush SCH (07:58)
[2020-06-20] MEDS: SODIUM CHLORIDE FLUSH 10ML SYR IVF SCH ×2 (07:59→21:00)
[2020-06-20] MEDS ORDERED: FUROSEMIDE 40 MG/4 ML IV ONE (08:30)
[2020-06-20] MEDS: INSULIN GLARGINE 100 UNITS/ML, PEN SQ-INSULIN SCH ×2 (09:28→21:15)
[2020-06-20] MEDS: CEFTRIAXONE PMX 2GM/50ML 50 ML IVPB SCH (11:17)
[2020-06-20] MEDS: THIAMINE 100 MG in SODIUM CHLORIDE 0.9% 50 ML IV SCH (12:18)
[2020-06-20] MEDS: CEFTAZIDIME 2,000 MG in SODIUM CHLORIDE 0.9% 50 ML IV SCH ×2 (15:24→23:16)
[2020-06-20] MEDS: HEPARIN 25,000 UNITS/250ML PMX 250 ML IV PRN (17:58)
[2020-06-20] MEDS: PROPOFOL 100 ML IV PRN (18:48)
[2020-06-21] MEDS: DEXMEDETOMIDINE 1,000 MCG in SODIUM CHLORIDE 0.9% 240 ML IV PRN ×4 (00:26→22:15)
[2020-06-21] MEDS: INSULIN LISPRO 100 UNITS/ML, PEN SQ-INSULIN SCH ×4 (03:00→19:51)
[2020-06-21 04:34] LABS: BASOPHILS % (AUTO) 1 % (0-1); EOSINOPHILS % (AUTO) 3 % (1-7); LYMPHOCYTES % (AUTO) 15 % (22-44); MEAN CORPUSCULAR HEMOGLOBIN 35.5 pg (27.5-34.5); MEAN CORPUSCULAR HGB CONC 34.5 g/dL (33.2-36.2); MONOCYTES % (AUTO) 8 % (2-9); NEUTROPHILS % (AUTO) 73 % (42-75); PLATELET COUNT 102 x10^3/uL (130-400); RED BLOOD COUNT 4.15 x10^6/uL (4.38-5.82); RED CELL DISTRIBUTION WIDTH 13.5 % (9.4-14.8)
[2020-06-21] MEDS: METRONIDAZOLE PMX 500MG/100ML 100 ML IV SCH ×3 (04:36→19:50)
[2020-06-21 04:39] LABS: MD NO
[2020-06-21 04:41] LABS: ANION GAP 6 mmol/L (5-15); CALCIUM 8.4 mg/dL (8.5-10.1); CHLORIDE 112 mmol/L (98-107); CREATININE 1.25 mg/dL (0.7-1.3)
[2020-06-21] MEDS: CEFTAZIDIME 2,000 MG in SODIUM CHLORIDE 0.9% 50 ML IV SCH ×3 (06:26→23:56)
[2020-06-21] MEDS: PANTOPRAZOLE 40 MG IV IV SCH (08:42)
[2020-06-21] MEDS: RISPERIDONE 1 MG TABLET PO SCH ×3 (08:42→19:50)
[2020-06-21] MEDS: SODIUM CHLORIDE FLUSH 10ML SYR IVF SCH ×2 (08:43→19:51)
[2020-06-21] MEDS: SENNA/DOCUSATE TABLET NG SCH (08:43)
[2020-06-21] MEDS: INSULIN GLARGINE 100 UNITS/ML, PEN SQ-INSULIN SCH ×2 (09:02→19:52)
--- NOTE | 2020-06-21 10:07 | NUR ---
restart Vital HP at 10 ml/hr Addendum: 06/21/20 at [address] Amended: Links added.
[2020-06-21] MEDS: THIAMINE 100 MG in SODIUM CHLORIDE 0.9% 50 ML IV SCH (11:59)
[2020-06-21] MEDS: PROPOFOL 100 ML IV PRN ×2 (11:59→17:29)
[2020-06-21] MEDS: HEPARIN 25,000 UNITS/250ML PMX 250 ML IV PRN (17:30)
[2020-06-22] MEDS: PROPOFOL 100 ML IV PRN (01:58)
[2020-06-22] MEDS: INSULIN LISPRO 100 UNITS/ML, PEN SQ-INSULIN SCH ×4 (04:10→21:02)
[2020-06-22] MEDS: METRONIDAZOLE PMX 500MG/100ML 100 ML IV SCH (04:23)
[2020-06-22 04:45] LABS: BASOPHILS % (AUTO) 0 % (0-1); EOSINOPHILS % (AUTO) 4 % (1-7); LYMPHOCYTES % (AUTO) 22 % (22-44); MEAN CORPUSCULAR HEMOGLOBIN 35.5 pg (27.5-34.5); MEAN PLATELET VOLUME 9.3 fL (7.4-10.4); MONOCYTES % (AUTO) 7 % (2-9); NEUTROPHILS % (AUTO) 67 % (42-75); PLATELET COUNT 104 x10^3/uL (130-400); RED BLOOD COUNT 3.96 x10^6/uL (4.38-5.82); RED CELL DISTRIBUTION WIDTH 13.3 % (9.4-14.8)
[2020-06-22 04:48] LABS: MD NO
[2020-06-22 04:50] LABS: ANION GAP 7 mmol/L (5-15); CALCIUM 8.2 mg/dL (8.5-10.1); CHLORIDE 115 mmol/L (98-107); CREATININE 1.18 mg/dL (0.7-1.3); TRIGLYCERIDES 177 mg/dL (50-200)
[2020-06-22] MEDS: CEFTAZIDIME 2,000 MG in SODIUM CHLORIDE 0.9% 50 ML IV SCH ×3 (06:30→22:51)
[2020-06-22] MEDS: RISPERIDONE 1 MG TABLET PO SCH (08:14)
[2020-06-22] MEDS: SENNA/DOCUSATE TABLET NG SCH (08:14)
[2020-06-22] MEDS: SODIUM CHLORIDE FLUSH 10ML SYR IVF SCH ×2 (08:15→21:01)
[2020-06-22] MEDS: INSULIN GLARGINE 100 UNITS/ML, PEN SQ-INSULIN SCH ×2 (08:15→21:01)
[2020-06-22] MEDS: PANTOPRAZOLE 40 MG IV IV SCH (08:16)
[2020-06-22] MEDS ORDERED: FONDAPARINUX 7.5 MG/0.6 ML SQ SCH (10:00)
[2020-06-22] MEDS ORDERED: METOPROLOL 1 MG/ML, 5ML ONE (12:50)
[2020-06-22] MEDS ORDERED: METOPROLOL 1 MG/ML, 5ML IVPush ONE (13:00)
[2020-06-22] MEDS ORDERED: LORazepam 2 MG/ML, 1ML IVPush ONE (17:30)
[2020-06-23 04:32] LABS: BASOPHILS % (AUTO) 1 % (0-1); EOSINOPHILS % (AUTO) 2 % (1-7); LYMPHOCYTES % (AUTO) 14 % (22-44); MEAN CORPUSCULAR HEMOGLOBIN 35.7 pg (27.5-34.5); MEAN CORPUSCULAR HGB CONC 34.7 g/dL (33.2-36.2); MEAN PLATELET VOLUME 8.8 fL (7.4-10.4); MONOCYTES % (AUTO) 7 % (2-9); NEUTROPHILS % (AUTO) 77 % (42-75); PLATELET COUNT 121 x10^3/uL (130-400); RED BLOOD COUNT 4.05 x10^6/uL (4.38-5.82); RED CELL DISTRIBUTION WIDTH 13.4 % (9.4-14.8)
[2020-06-23 04:33] LABS: MD NO
[2020-06-23 04:43] LABS: ANION GAP 11 mmol/L (5-15); CALCIUM 8.2 mg/dL (8.5-10.1); CHLORIDE 108 mmol/L (98-107); CREATININE 0.95 mg/dL (0.7-1.3)
[2020-06-23] MEDS: PANTOPRAZOLE 40MG TABLET PO SCH (04:46)
[2020-06-23] MEDS: CEFTAZIDIME 2,000 MG in SODIUM CHLORIDE 0.9% 50 ML IV SCH ×3 (06:21→22:23)
[2020-06-23] MEDS: INSULIN LISPRO 100 UNITS/ML, PEN SQ-INSULIN SCH ×4 (07:00→20:12)
[2020-06-23] MEDS ORDERED: FUROSEMIDE 40 MG/4 ML IV ONE (07:30)
[2020-06-23] MEDS: DEXMEDETOMIDINE 400 MCG in SODIUM CHLORIDE 0.9% 96 ML IV PRN ×3 (07:44→20:27)
[2020-06-23] MEDS: SENNA/DOCUSATE TABLET NG SCH (07:46)
[2020-06-23] MEDS: APIXABAN 5 MG TABLET PO SCH ×2 (07:46→20:11)
[2020-06-23] MEDS: SODIUM CHLORIDE FLUSH 10ML SYR IVF SCH ×2 (07:47→20:12)
[2020-06-23] MEDS: INSULIN GLARGINE 100 UNITS/ML, PEN SQ-INSULIN SCH ×2 (07:48→20:23)
[2020-06-23] MEDS ORDERED: OXYcodone IR 5MG TABLET PO ONE (10:00)
[2020-06-24] MEDS: DEXMEDETOMIDINE 400 MCG in SODIUM CHLORIDE 0.9% 96 ML IV PRN (03:40)
[2020-06-24 05:32] LABS: ANION GAP 7 mmol/L (5-15); CALCIUM 8.3 mg/dL (8.5-10.1); CHLORIDE 109 mmol/L (98-107); CREATININE 0.86 mg/dL (0.7-1.3)
[2020-06-24] MEDS: PANTOPRAZOLE 40MG TABLET PO SCH (05:33)
[2020-06-24 05:46] LABS: BASOPHILS % (AUTO) 1 % (0-1); EOSINOPHILS % (AUTO) 4 % (1-7); LYMPHOCYTES % (AUTO) 17 % (22-44); MEAN CORPUSCULAR HEMOGLOBIN 35.9 pg (27.5-34.5); MEAN CORPUSCULAR HGB CONC 35.2 g/dL (33.2-36.2); MEAN PLATELET VOLUME 9.2 fL (7.4-10.4); MONOCYTES % (AUTO) 8 % (2-9); NEUTROPHILS % (AUTO) 70 % (42-75); PLATELET COUNT 129 x10^3/uL (130-400); RED CELL DISTRIBUTION WIDTH 13.3 % (9.4-14.8)
[2020-06-24] MEDS: CEFTAZIDIME 2,000 MG in SODIUM CHLORIDE 0.9% 50 ML IV SCH ×3 (05:46→22:24)
[2020-06-24 05:47] LABS: MD NO
[2020-06-24] MEDS: INSULIN LISPRO 100 UNITS/ML, PEN SQ-INSULIN SCH ×4 (07:00→19:56)
[2020-06-24] MEDS: SODIUM CHLORIDE FLUSH 10ML SYR IVF SCH ×2 (08:09→19:56)
[2020-06-24] MEDS: APIXABAN 5 MG TABLET PO SCH ×2 (08:10→19:56)
[2020-06-24] MEDS: SENNA/DOCUSATE TABLET NG SCH (08:10)
[2020-06-24] MEDS: INSULIN GLARGINE 100 UNITS/ML, PEN SQ-INSULIN SCH ×2 (08:11→19:56)
[2020-06-24 18:44] VITALS: BP 102/73
[2020-06-24 20:01] VITALS: BP 119/83
[2020-06-24] MEDS ORDERED: SODIUM CHLORIDE 0.9%, 500ML IVBOLUS ONE (20:30)
[2020-06-25 02:40] VITALS: BP 115/74
[2020-06-25 05:00] LABS: BASOPHILS % (AUTO) 1 % (0-1); EOSINOPHILS % (AUTO) 4 % (1-7); LYMPHOCYTES % (AUTO) 12 % (22-44); MEAN CORPUSCULAR HEMOGLOBIN 35.4 pg (27.5-34.5); MEAN CORPUSCULAR HGB CONC 34.5 g/dL (33.2-36.2); MEAN PLATELET VOLUME 8.7 fL (7.4-10.4); MONOCYTES % (AUTO) 8 % (2-9); NEUTROPHILS % (AUTO) 75 % (42-75); PLATELET COUNT 172 x10^3/uL (130-400); RED BLOOD COUNT 4.02 x10^6/uL (4.38-5.82)
[2020-06-25 05:08] LABS: MD NO
[2020-06-25 05:11] LABS: ANION GAP 7 mmol/L (5-15); CALCIUM 8.4 mg/dL (8.5-10.1); CHLORIDE 110 mmol/L (98-107); CREATININE 0.98 mg/dL (0.7-1.3)
[2020-06-25] MEDS: CEFTAZIDIME 2,000 MG in SODIUM CHLORIDE 0.9% 50 ML IV SCH ×3 (06:22→22:39)
[2020-06-25] MEDS: PANTOPRAZOLE 40MG TABLET PO SCH (06:22)
[2020-06-25] MEDS: INSULIN LISPRO 100 UNITS/ML, PEN SQ-INSULIN SCH ×4 (06:46→21:00)
[2020-06-25 08:25] VITALS: BP 116/81
[2020-06-25] MEDS: ACETAMINOPHEN 325 MG TABLET PO PRN (08:59)
[2020-06-25] MEDS: APIXABAN 5 MG TABLET PO SCH ×2 (08:59→21:21)
[2020-06-25] MEDS: SENNA/DOCUSATE TABLET NG SCH (09:00)
[2020-06-25] MEDS: INSULIN GLARGINE 100 UNITS/ML, PEN SQ-INSULIN SCH ×2 (09:01→21:00)
[2020-06-25] MEDS: SODIUM CHLORIDE FLUSH 10ML SYR IVF SCH ×2 (09:02→21:21)
[2020-06-25 12:57] VITALS: BP 120/80
[2020-06-25 18:42] VITALS: BP 113/84
[2020-06-25 23:45] VITALS: BP 134/98
[2020-06-26 05:53] LABS: BASOPHILS % (AUTO) 1 % (0-1); EOSINOPHILS % (AUTO) 6 % (1-7); LYMPHOCYTES % (AUTO) 16 % (22-44); MEAN CORPUSCULAR HEMOGLOBIN 35.8 pg (27.5-34.5); MEAN CORPUSCULAR HGB CONC 35.2 g/dL (33.2-36.2); MEAN PLATELET VOLUME 8.5 fL (7.4-10.4); MONOCYTES % (AUTO) 9 % (2-9); NEUTROPHILS % (AUTO) 69 % (42-75); PLATELET COUNT 157 x10^3/uL (130-400); RED BLOOD COUNT 3.67 x10^6/uL (4.38-5.82); RED CELL DISTRIBUTION WIDTH 13.3 % (9.4-14.8)
[2020-06-26 05:58] LABS: ANION GAP 7 mmol/L (5-15); CALCIUM 8.4 mg/dL (8.5-10.1); CHLORIDE 109 mmol/L (98-107)
[2020-06-26 05:58] LABS: MD NO
[2020-06-26 05:59] LABS: CREATININE 0.91 mg/dL (0.7-1.3)
[2020-06-26] MEDS: CEFTAZIDIME 2,000 MG in SODIUM CHLORIDE 0.9% 50 ML IV SCH ×3 (06:11→22:32)
[2020-06-26] MEDS: PANTOPRAZOLE 40MG TABLET PO SCH (06:11)
[2020-06-26] MEDS: INSULIN LISPRO 100 UNITS/ML, PEN SQ-INSULIN SCH ×4 (07:00→21:00)
[2020-06-26] MEDS: SENNA/DOCUSATE TABLET NG SCH (07:26)
[2020-06-26 08:10] VITALS: BP 114/81
[2020-06-26] MEDS: APIXABAN 5 MG TABLET PO SCH ×2 (09:42→21:21)
[2020-06-26] MEDS: SODIUM CHLORIDE FLUSH 10ML SYR IVF SCH ×2 (09:43→21:21)
[2020-06-26] MEDS: INSULIN GLARGINE 100 UNITS/ML, PEN SQ-INSULIN SCH ×2 (09:43→21:00)
[2020-06-26] MEDS ORDERED: INSU100I13 SQ-INSULIN (10:45)
[2020-06-26] MEDS ORDERED: INSU100I11 SQ-INSULIN (10:45)
[2020-06-26 13:08] VITALS: BP 118/79
[2020-06-26] MEDS ORDERED: INSTRUCTION SEE COMMENTS XX PRN (15:30)
[2020-06-26] MEDS ORDERED: QUETIAPINE 25MG TABLET PO PRN (15:30)
[2020-06-26] MEDS ORDERED: PHARMACY INSTRUCTION MC PRN (15:30)
[2020-06-26 19:26] VITALS: BP 111/79
[2020-06-26] MEDS ORDERED: MELATONIN 3 MG TABLET PO SCH (21:00)
[2020-06-27 01:58] VITALS: BP 106/84
[2020-06-27] MEDS: CEFTAZIDIME 2,000 MG in SODIUM CHLORIDE 0.9% 50 ML IV SCH (06:06)
[2020-06-27] MEDS: PANTOPRAZOLE 40MG TABLET PO SCH (06:06)
[2020-06-27 06:16] LABS: BASOPHILS % (AUTO) 1 % (0-1); EOSINOPHILS % (AUTO) 4 % (1-7); LYMPHOCYTES % (AUTO) 17 % (22-44); MEAN CORPUSCULAR HEMOGLOBIN 36.2 pg (27.5-34.5); MEAN CORPUSCULAR HGB CONC 35.4 g/dL (33.2-36.2); MEAN PLATELET VOLUME 7.8 fL (7.4-10.4); MONOCYTES % (AUTO) 8 % (2-9); NEUTROPHILS % (AUTO) 70 % (42-75); PLATELET COUNT 174 x10^3/uL (130-400); RED BLOOD COUNT 3.78 x10^6/uL (4.38-5.82); RED CELL DISTRIBUTION WIDTH 13.5 % (9.4-14.8)
[2020-06-27 06:18] LABS: MD NO
[2020-06-27 06:33] LABS: ANION GAP 8 mmol/L (5-15); CALCIUM 8.7 mg/dL (8.5-10.1); CHLORIDE 110 mmol/L (98-107); CREATININE 0.95 mg/dL (0.7-1.3)
[2020-06-27 06:42] VITALS: BP 114/73
[2020-06-27] MEDS: INSULIN LISPRO 100 UNITS/ML, PEN SQ-INSULIN SCH ×4 (07:00→21:48)
[2020-06-27] MEDS: SODIUM CHLORIDE FLUSH 10ML SYR IVF SCH ×2 (07:52→21:00)
[2020-06-27] MEDS: APIXABAN 5 MG TABLET PO SCH ×2 (08:28→21:22)
[2020-06-27] MEDS: SENNA/DOCUSATE TABLET NG SCH (08:28)
[2020-06-27] MEDS: INSULIN GLARGINE 100 UNITS/ML, PEN SQ-INSULIN SCH ×2 (08:29→21:49)
[2020-06-27 12:47] VITALS: BP 110/71
[2020-06-27 20:09] VITALS: BP 112/75
[2020-06-28 00:48] VITALS: BP 107/69
[2020-06-28 05:10] LABS: BASOPHILS % (AUTO) 1 % (0-1); EOSINOPHILS % (AUTO) 6 % (1-7); LYMPHOCYTES % (AUTO) 23 % (22-44); MEAN CORPUSCULAR HEMOGLOBIN 35.9 pg (27.5-34.5); MEAN CORPUSCULAR HGB CONC 35.2 g/dL (33.2-36.2); MEAN PLATELET VOLUME 8.2 fL (7.4-10.4); MONOCYTES % (AUTO) 8 % (2-9); NEUTROPHILS % (AUTO) 62 % (42-75); PLATELET COUNT 186 x10^3/uL (130-400); RED BLOOD COUNT 3.64 x10^6/uL (4.38-5.82); RED CELL DISTRIBUTION WIDTH 13.5 % (9.4-14.8)
[2020-06-28 05:13] LABS: MD NO
[2020-06-28 05:24] LABS: ANION GAP 6 mmol/L (5-15); CALCIUM 8.6 mg/dL (8.5-10.1); CHLORIDE 109 mmol/L (98-107); CREATININE 0.98 mg/dL (0.7-1.3)
[2020-06-28] MEDS: PANTOPRAZOLE 40MG TABLET PO SCH (05:43)
[2020-06-28 06:32] VITALS: BP 116/79
[2020-06-28] MEDS: INSULIN LISPRO 100 UNITS/ML, PEN SQ-INSULIN SCH ×4 (07:00→20:44)
[2020-06-28] MEDS: SODIUM CHLORIDE FLUSH 10ML SYR IVF SCH ×2 (08:35→20:50)
[2020-06-28] MEDS: INSULIN GLARGINE 100 UNITS/ML, PEN SQ-INSULIN SCH ×2 (08:35→20:45)
[2020-06-28] MEDS: APIXABAN 5 MG TABLET PO SCH ×2 (08:35→20:43)
[2020-06-28] MEDS: SENNA/DOCUSATE TABLET NG SCH (08:35)
[2020-06-28 12:58] VITALS: BP 124/73
[2020-06-28 19:33] VITALS: BP 128/76
[2020-06-29 02:00] VITALS: BP 123/72
[2020-06-29 05:02] LABS: BASOPHILS % (AUTO) 1 % (0-1); EOSINOPHILS % (AUTO) 6 % (1-7); LYMPHOCYTES % (AUTO) 33 % (22-44); MEAN CORPUSCULAR HEMOGLOBIN 35.9 pg (27.5-34.5); MEAN CORPUSCULAR HGB CONC 34.6 g/dL (33.2-36.2); MEAN PLATELET VOLUME 7.9 fL (7.4-10.4); MONOCYTES % (AUTO) 9 % (2-9); NEUTROPHILS % (AUTO) 52 % (42-75); PLATELET COUNT 179 x10^3/uL (130-400); RED BLOOD COUNT 3.48 x10^6/uL (4.38-5.82); RED CELL DISTRIBUTION WIDTH 13.5 % (9.4-14.8)
[2020-06-29 05:03] LABS: MD NO
[2020-06-29 05:14] LABS: ANION GAP 6 mmol/L (5-15); CALCIUM 8.7 mg/dL (8.5-10.1); CHLORIDE 112 mmol/L (98-107)
[2020-06-29 05:16] LABS: CREATININE 0.93 mg/dL (0.7-1.3)
[2020-06-29] MEDS: PANTOPRAZOLE 40MG TABLET PO SCH (06:28)
[2020-06-29] MEDS: INSULIN LISPRO 100 UNITS/ML, PEN SQ-INSULIN SCH ×4 (07:00→22:07)
[2020-06-29 07:52] VITALS: BP 114/69
[2020-06-29] MEDS: APIXABAN 5 MG TABLET PO SCH ×2 (08:06→22:06)
[2020-06-29] MEDS: SENNA/DOCUSATE TABLET NG SCH (08:06)
[2020-06-29] MEDS: INSULIN GLARGINE 100 UNITS/ML, PEN SQ-INSULIN SCH ×2 (08:08→22:09)
[2020-06-29] MEDS: SODIUM CHLORIDE FLUSH 10ML SYR IVF SCH ×2 (08:08→22:07)
[2020-06-29 13:00] VITALS: BP 122/69
[2020-06-29 19:01] VITALS: BP 134/96
[2020-06-30 00:32] VITALS: BP 104/68
[2020-06-30] MEDS: PANTOPRAZOLE 40MG TABLET PO SCH (05:46)
[2020-06-30 06:09] LABS: BASOPHILS % (AUTO) 1 % (0-1); EOSINOPHILS % (AUTO) 6 % (1-7); LYMPHOCYTES % (AUTO) 31 % (22-44); MEAN CORPUSCULAR HEMOGLOBIN 35.9 pg (27.5-34.5); MEAN CORPUSCULAR HGB CONC 34.8 g/dL (33.2-36.2); MEAN PLATELET VOLUME 7.9 fL (7.4-10.4); MONOCYTES % (AUTO) 9 % (2-9); NEUTROPHILS % (AUTO) 53 % (42-75); PLATELET COUNT 196 x10^3/uL (130-400); RED BLOOD COUNT 3.44 x10^6/uL (4.38-5.82); RED CELL DISTRIBUTION WIDTH 13.8 % (9.4-14.8)
[2020-06-30 06:18] LABS: ANION GAP 5 mmol/L (5-15); CALCIUM 8.7 mg/dL (8.5-10.1); CHLORIDE 113 mmol/L (98-107); CREATININE 0.94 mg/dL (0.7-1.3)
[2020-06-30 06:21] LABS: MD NO
[2020-06-30] MEDS ORDERED: POTASSIUM CHLORIDE 20 MEQ TAB.ER.PRT PO ONE (06:30)
[2020-06-30 06:56] VITALS: BP 124/74
[2020-06-30] MEDS: INSULIN LISPRO 100 UNITS/ML, PEN SQ-INSULIN SCH ×3 (07:00→15:20)
[2020-06-30] MEDS: SODIUM CHLORIDE FLUSH 10ML SYR IVF SCH (07:28)
[2020-06-30] MEDS: SENNA/DOCUSATE TABLET NG SCH (07:29)
[2020-06-30] MEDS: APIXABAN 5 MG TABLET PO SCH (08:41)
[2020-06-30] MEDS: INSULIN GLARGINE 100 UNITS/ML, PEN SQ-INSULIN SCH (08:44)
[2020-06-30] MEDS ORDERED: APIX5TAB PO (12:01)
[2020-06-30] MEDS ORDERED: INSU100I13 SQ-INSULIN ×2 (12:01)
[2020-06-30] MEDS ORDERED: INSU100I11 SQ-INSULIN ×2 (12:01)
[2020-06-30 12:14] VITALS: BP 118/76
[2020-07-01] MEDS ORDERED: INSU100I34 SQ (10:48)
[2020-07-01] MEDS ORDERED: INSU100V34 SQ (10:48)
== END 2020-06-30 18:25 | disposition home or self-care (01) | DRG 870 ==
LOC: ED 20:45 → EDIP 21:29 → 4EST 06-08 03:11 → CCU 06-10 08:15 → 5SO 06-24 18:45 → 4WST 06-27 10:55
PROVIDERS: ADMIT Internal Medicine; ATTEND Internal Medicine
PROC: 5A0935A Assistance with Respiratory Ventilation, Less than 24 Consecutive Hours, High Flow/Velocity Cannula (ICD-10-PCS; 2020-06-07)
PROC: 5A1955Z Respiratory Ventilation, Greater than 96 Consecutive Hours (ICD-10-PCS; 2020-06-10)
PROC: XW033H5 Introduction of Tocilizumab into Peripheral Vein, Percutaneous Approach, New Technology Group 5 (ICD-10-PCS; 2020-06-10)
PROC: XW033E5 Introduction of Remdesivir Anti-infective into Peripheral Vein, Percutaneous Approach, New Technology Group 5 (ICD-10-PCS; 2020-06-10)
PROC: 0BH17EZ Insertion of Endotracheal Airway into Trachea, Via Natural or Artificial Opening (ICD-10-PCS; 2020-06-10)
PROC: 0T9B70Z Drainage of Bladder with Drainage Device, Via Natural or Artificial Opening (ICD-10-PCS; principal; 2020-06-17)
DX: A41.89 Other specified sepsis (principal); G93.41 Metabolic encephalopathy; I50.33 Acute on chronic diastolic (congestive) heart failure; J12.82 Pneumonia due to coronavirus disease 2019; J96.01 Acute respiratory failure with hypoxia; U07.1 COVID-19; E46 Unspecified protein-calorie malnutrition; Z99.11 Dependence on respirator [ventilator] status; N17.9 Acute kidney failure, unspecified; D69.6 Thrombocytopenia, unspecified; D75.89 Other specified diseases of blood and blood-forming organs; E11.65 Type 2 diabetes mellitus with hyperglycemia; E66.9 Obesity, unspecified; I11.0 Hypertensive heart disease with heart failure; E78.1 Pure hyperglyceridemia; E78.5 Hyperlipidemia, unspecified; E83.51 Hypocalcemia; K59.00 Constipation, unspecified; G47.33 Obstructive sleep apnea (adult) (pediatric); S91.302A Unspecified open wound, left foot, initial encounter; S91.301A Unspecified open wound, right foot, initial encounter; X58.XXXA Exposure to other specified factors, initial encounter; F12.10 Cannabis abuse, uncomplicated; K52.9 Noninfective gastroenteritis and colitis, unspecified; T38.0X5A Adverse effect of glucocorticoids and synthetic analogues, initial encounter; Z80.8 Family history of malignant neoplasm of other organs or systems; Z86.711 Personal history of pulmonary embolism; Z71.51 Drug abuse counseling and surveillance of drug abuser; Z87.442 Personal history of urinary calculi; Z79.01 Long term (current) use of anticoagulants; Z68.29 Body mass index [BMI] 29.0-29.9, adult; Y93.89 Activity, other specified; Y92.89 Other specified places as the place of occurrence of the external cause; Y99.8 Other external cause status
CPT/HCPCS: 36415; 36600; 71045; 74018; 74177; 80048; 80053; 80061; 81001; 82330; 82378; 82728; 82803; 82947; 82962; 83036; 83615; 83735; 83880; 84100; 84443; 84478; 84484; 85025; 85379; 85520; 86022; 86140; 87040; 87070; 87077; 87081; 87086; 87186; 87205; 87324; 93005; 93306; 94002; 94003; 94660; 96365; 96375; G0378; J0456; J0696; J0713; J1100; J1644; J1940; J2250; J2704; J3010; J3262; J3411; J7030; Q9967; C9113; J0360; J1652; J1815; J2060; J7040; J7050